=== PATIENT | male | born 1965 | race Caucasian/White ===

== ENCOUNTER → 2018-04-01 | Outpatient (CLI) | payer SELFPAY ==
[~2018-04-01] MED LIST: IOPAMIDOL 76% 75 ML INFUS BTL 75 ML ONE; NS 0.9% 25 ML BAG 25 ML ONE; NS 0.9% 25 ML BAG 50 ML ONE
--- NOTE | 2018-04-01 16:30 | RADIOLOGY IMAGING REPORT ---
FACILITY: [facility] PATIENT NAME: Crescencio Summers : 1965 MR: [id number] V: [id number] EXAM DATE: ORDERING PHYSICIAN: HUDSON MALIK TECHNOLOGIST: Location: [facility] [place] Patient: Crescencio Summers : 1965 Visit/Account:[id number] Date of Sevice: 04/01/2018 CT angiogram chest with contrast Indication: Shortness of breath. Chest pain. Comparison: None available. Technique: Axial CT images are obtained through the chest after administration of 75 mL Isovue 370 IV contrast. Reformatted coronal and sagittal images were reviewed as well as coronal MIP images. One of the following dose optimization techniques was utilized in the performance of this exam: auto mated exposure control; adjustment of the mA and/or kV according to the patient's size; or use of an iterative reconstruction technique. Specific details can be referenced in the facility's radiology C T exam operational policy. FINDINGS: No evidence of filling defect within the pulmonary vasculature to suggest pulmonary embolus. Heart is normal size without pericardial effusion. The aorta shows no aneurysm or dissection. Mediast inum and hilar regions show no enlarged lymph nodes or abnormal density. Mildly prominent lymph node in the right hilar region measures 1.4 x 1.4 cm and is nonspecific. Lungs show no consolidation, pleural effusion or pneumothorax. The anterior right middle lobe does sh ow a 6 x 4 mm nodule. There is a calcified granuloma seen in the inferior aspect right upper lobe. No other discrete nodules. Airways are clear. Bony structures show no acute fractures or aggressive bony lesion. Chest wall shows no enlarged axill carine lymph nodes or masses. Mild degenerative changes of the spine. Limited views of the upper abdomen are unremarkable. IMPRESSION: 1. No evidence of pulmonary embolus. 2. No acute cardiothoracic abnormality 3. The anterior right middle lobe does show a 6 x 4 mm nodule. This is too small characterize and cou ld be postinflammatory. However suggest follow-up per Fleischner guidelines described below. FLEISCHNER SOCIETY FOLLOW-UP GUIDELINES FOR NEWLY DETECTED INCIDENTAL NODULES IN PERSONS 35 YEARS OF AGE OR OLDER. *THESE RECOMMENDATIONS DO NOT APPLY TO LUNG CANCER SCREENING, PATIENTS WITH IMMUNOSUPPRESSION , OR PA TIENTS WITH KNOWN PRIMARY MALIGNANCY. SOLITARY SOLID NODULES If nodule size is less than 6 mm: Low risk patient - no follow up needed High risk patient - Optional CT at 12 months. If nodule size is 6-8 mm: Low risk patient - follow up CT at 6-12 months, then consider CT at 18-24 months if no change. High risk patient - follow up CT at 6-12 months, then CT at 18-24 months if no change. If nodule size is greater than 8 mm: Low risk patient - Consider CT at 3, 9 months, and 24 months; or PET/CT, or tissue sampling, or a com bination thereof. High risk patient - Consider CT at 3, 9 months, and 24 months; or PET/CT, or tissue sampling, or a co mbination thereof. LOW RISK PATIENT: Minimal or absent history of tobacco use and of other known risk factors. HIGH RISK PATIENT: Tobacco use, family history of lung cancer, upper pulmonary lobe location of nodul e, presence of emphysema, pulmonary fibrosis, older age. Esa H, Jennifer DP, Rosemary JM, et al. Guidelines for Management of Incidental Pulmonary Nodules Dete cted on CT Images: From the Fleischner Society 2017. Radiology. Report Dictated By: Khanh Norris at 04/01/2018 4:16 PM Report E-Signed By: Khanh Norris at 04/01/2018 4:27 PM WSN:[id number]
== END ==
LOC: CT 14:30
PROVIDERS: ATTEND Family Medicine
DX: R91.8 Other nonspecific abnormal finding of lung field (principal)
CPT/HCPCS: 71275; Q9967

== ENCOUNTER → 2018-04-01 | Outpatient (REF) | payer SELFPAY ==
[2018-04-01 14:43] LABS: INR 0.99; PLATELET COUNT, AUTOMATED 166 K/uL (150-450)
== END ==
PROVIDERS: ATTEND Family Medicine
DX: R06.02 Shortness of breath (principal)
CPT/HCPCS: 82040; 82247; 82310; 82374; 82435; 82565; 82947; 84075; 84132; 84155; 84295; 84450; 84460; 84484; 84520; 85025; 85379; 85610